=== PATIENT | male | born 1945 | race Caucasian/White ===

== ENCOUNTER 2017-08-23 02:18 | Inpatient (IN) | payer OTHER, MEDICARE ==
[~2017-08-23] VITALS: Ht 182.9 cm; Wt 85.7 kg
[~2017-08-23 02:18] MED LIST: AMLODIPINE BESY10 M1 PO; HYDROCHLOROTH12.5 M3 PO; KLOR-CON M2020 ME1 PO; LISINOPRIL40 M1 PO; MAG6464 MG PO
--- NOTE | 2017-08-23 16:09 | Operative Report ---
Operative/Inv Procedure Report Surgery Date: 08/23/17 Name of Procedure: cystoscopy: bilateral stent insertion Pre-Operative Diagnosis: colon cancer adhesion to dome of bladder. difficult dissection Post-Operative Diagnosis: same Estimated Blood Loss: scant Surgeon/Food And Beverage Checker: MD Hillman Arnold-urology Anesthesia: general endotracheal tube Drains: 16 fr cabrera.:bilteral stents (to be dc'd sequentially) Complications: none Operative Indication: intraoperative consultation for stents and evaluate adhesions to bladder. Operative/Procedure Note Note: already dictated: please look for second dictation. Findings: normal bladder: bilateral stents inserted Discharge Disposition: proceed with dr. huang. CC: Byron Hillman MD
--- NOTE | 2017-08-23 19:45 | Operative Report ---
Operative/Inv Procedure Report Surgery Date: 08/23/17 Name of Procedure: Laparoscopic converted to open low anterior resection of the rectum Pre-Operative Diagnosis: Colon cancer Post-Operative Diagnosis: Upper rectal cancer Estimated Blood Loss: 50ml to 100ml Surgeon/Law Enforcement Officer: Narayan HANSON,Yeison Roman/Jimenez Aiken MD/Fay WHETA Anesthesia: general endotracheal tube Specimens: Rectosigmoid Operative Indication: 72-year-old males status post colonic stenting for obstruction due to distal sigmoid colon cancer. Presents for resection Operative/Procedure Note Note: After consent is brought to the operative laid supine. He was then placed in lithotomy position. Gen. anesthesia was obtained and his abdomen was prepped and draped. We began laparoscopically. Vertical incision above the umbilicus was made sharply and dissected down the fascia bluntly. It was grasped Nakul's and a fasciotomy created sharply. Stay sutures were placed and a blunt Veloz port was placed. Pneumoperitoneum was achieved. A 5 mm port was placed in suprapubic region, a 5 mm port was placed in the right mid abdomen. A 12 mm port was placed in the right lower quadrant. We explored the abdomen. There is redundant sigmoid colon. The white line of Toldt was visualized and noted to be hyperemic. There was the stent in the pelvic inlet and the colon related to it was adherent to the anterior abdominal wall near the bladder. We began by taking down the white Toldt with cautery. This portion the operation was kind of more bloody than usual due to the resolving inflammation proximal me. It was presumed that the chronic colonic obstruction caused those changes. Otherwise the bowel looked to be normal and relatively supple. The colon was mobilized up to the left colon and then down to the upper rectum. This is where the difficulty began. The colon was fused to what appeared to be bladder. I took down some peritoneum around it. Dissection was more difficult due to the presence of the colonic stent. Teased through the fatty tissue/preperitoneal tissue. Eventually got down to the bladder wall. This is when I decided to call urology. Dr. Hillman came in to do cystoscopy which was unremarkable. He placed ureteral stents. The dissection was then carried forth further taking a small rim of muscle off the bladder. We did not enter the bladder. Inferiorly there was what looked to be possibly locally advanced cancer and at this point I decided to convert to an open operation for fear of violating oncologic principles. Incision made in the midline and subcutaneous tissues dissected with cautery. The fascia was incised with cautery. Bookwalter retraction system was placed. The rectosigmoid junction was dissected free from the peritoneum. It was unclear if there was a negative margin along the bladder so 2 more pieces were taken with cautery. These were sent off for permanent section. We then mobilized the rectum along bilateral perineal reflections. Again the dissections with much more difficult due to the presence of the stent which caused somewhat of an inflammatory reaction around it. We chose a proximal line of transection and took the mesentery down to the CHRISTOPHER. The CHRISTOPHER was then suture ligated with 0 Vicryl. We then got into the meso rectal plane posteriorly and care dissection down to the upper rectum. There is difficult to know how far we had to go due to the presence of the stent and the nonpalpable nature of the tumor with the stent in place. We had down to the operative mid rectal junction. And carried our dissection along the posterior mesentery up to the rectal wall. A TA stapler was then placed and the bowel divided distally. A LAVELL was used to perform proximal transection. Specimen was passed off the field. The stent was visible in the distal specimen with approximately 1 cm of margin distally. Therefore we took another rim of tissue along the rectal cuff. We mobilized it with cautery dissection and placed another TA stapler and took another cuff of tissue. The proximal bowel was an open with a purse tonio and sized to a 31 EEA. The intervals placed in the suture tied down. Fatty tissue was cleared off of it. Dr. Lizama then broke scrub and went below. He placed the EEA up the anus to the rectum. And an anastomosis was then created area 2 intact donuts were identified and a portion sent for further margin assessment. The anastomosis was then tested under water and there is no leaks. We then suction irrigated the peritoneal cavity normal saline. The fascia was enclosed with a running 0 Maxon suture. Skin closed with lawrence. Sterile dressings were applied. Sponge and counts are correct CC: Juancarlos HANSON,Derik Bella; Willy HANSON,Aurelia
--- NOTE | 2017-08-23 20:55 | Admission Core Measures ---
Acute Coronary Syndrome (CM) ACS Core Measures Acute Coronary Syndrome Diagnosis No Congestive Heart Failure (NEW) CHF Core Measures Congestive Heart Failure Diagnosis No Cerebrovascular Accident (NEW) CVA Core Measures CVA/TIA Diagnosis No Venous Thromboembolism VTE Core Nena (View Protocol) VTE Risk Factors Surgery No Mechanical VTE Prophylaxis d/t N/A MechProphylax Ordered No VTE Pharm Prophylaxis d/t NA PharmProphylax ordered Problem List As ranked by this Provider includes Assessment & Plan 1. Rectosigmoid cancer HOME MEDS Home Med List No Known Home Medications
[2017-08-23 21:50] VITALS: BP 130/72
--- NOTE | 2017-08-23 22:01 | PN- General Surgery ---
Subjective Subjective: POSTOP CHECK minimal pain, tired, no n/v/sob/cp, will sips clears, no oob, +uo via cabrera/stent , no bowel fxn Objective Vital Signs and I&Os SEE EMR Physical Exam: GEN- NAD CARD- s1s2 RRR PULM- CTAB ABD- incisions dressed- serosang drainage on midline dressing, quiet bs, softly dist, ttp EXT- calves soft nt, alps on - cabrera draining blood tinged urine, stent draining blood tinged urine Assessment/Plan Assessment/Plan A- POD0 sp lap-open LAR for rectsigmoid CA, with intraop cysto and ureteral stent placement, await return of bowel fxn, currently stable postop P- -abx x23hr postop -clr liquid diet -IVF -Per Dr. Hillman- cabrera to stay in place x5 days, remaining stent to be pulled POD1 morning (other stent dc'ed in pacu) -home meds -prn pain meds -hep sq, alps, oob, ambulate, ist -will dw attending Core Measures Venous Thromboembolism VTE Risk Factors Surgery No Mechanical VTE Prophylaxis d/t N/A MechProphylax Ordered No VTE Pharm Prophylaxis d/t NA PharmProphylax ordered
[2017-08-24 07:36] VITALS: BP 127/73
[2017-08-24 08:34] LABS: ABSOLUTE BASOPHIL COUNT 0 /CUMM (0.0-0.2); ABSOLUTE EOSINOPHIL COUNT 0 /CUMM (0.0-0.7); ABSOLUTE GRANULOCYTE CT 7.2 /CUMM (1.4-6.5); ABSOLUTE LYMPH COUNT 0.7 /CUMM (1.2-3.4); ABSOLUTE MONOCYTE COUNT 0.7 /CUMM (0.10-0.60); BASOPHIL % 0 % (0.0-2.0); EOSINOPHIL % 0 % (0-5); GRANULOCYTE % 83.4 % (42.2-75.2); MEAN CORPUSCULAR HGB 31.2 PG (27.0-31.0); MEAN CORPUSCULAR HGB CONC 33.4 G/DL (33.0-37.0); MEAN CORPUSCULAR VOLUME 93.4 FL (80.0-94.0); MEAN PLATELET VOLUME 9.2 FL (7.4-10.4); PLATELET COUNT 128 /CUMM (130-400); RBC DISTRIBUTION WIDTH 15.9 % (11.5-14.5); RED BLOOD CELL CT 3.22 /CUMM (4.70-6.10)
--- NOTE | 2017-08-24 08:55 | PN- General Surgery ---
See Addendum Subjective Subjective: Patient states he feels well. He is tolerating clears without any nausea or vomiting. Pain is well controlled. Denies ambulating yet, states he is planning to this afternoon. Reports passing flatus, denies having a BM. Objective Vital Signs and I&Os Vital Signs Date Time Temp Pulse Resp B/P B/P Pulse O2 O2 Flow FiO2 Mean Ox Delivery Rate 08/24 0736 98.1 79 18 127/73 98 Room Air 08/23 2150 98.0 81 18 130/72 95 Room Air Intake & Output 08/24 1600 08/24 0800 08/24 0000 08/23 1600 08/23 0800 08/23 0000 Intake Total Output Total Balance Patient 189 lb Weight Weight Reported by Patient Measurement Method Physical Exam: General: Resting comfortably in bed awake an alert in NAD Cardiac: S1S2 noted Lungs: Good inspiratory effort, CTAB Abd: Soft, mildly distened, midline dressing stained, other dressing d/c/i. Bowel sounds present, appropriately tender to palpation : Cabrera in place with concentrated urine and stent in place with sanguineous drainage Ext: Alps in place, no edema or calf tenderness B/L Current Medications: Current Medications Sig/Jodie Start time Last Medication Dose Route Stop Time Status Admin Acetaminophen 1,000 MG Q6P PRN 08/23 2145 AC N/A 1 UNIT IV 08/24 214 Acetaminophen 1,000 MG .STK-MED ONE 08/230 DC IV 08/23 1211 Amlodipine Besylate 10 MG DAILY 08/24 1000 CAN PO Bicalutamide 50 MG DAILY 08/24 1000 CAN PO Cefazolin Sodium 2 GM IQ8 08/24 0000 DC 08/24 N/A 1 UNIT IV 08/24 0829 0814 Cefazolin Sodium 2,000 MG ONCE 08/23 0000 DC IV 08/23 2359 Dextrose/Sodium 1,000 ML .[id number] 08/23 2145 AC 08/24 Chloride IV 0536 Fentanyl Citrate 250 MCG .STK-MED ONE 08/23 1210 DC IM 08/23 1211 Heparin Sodium 5,000 UNIT Q8 08/23 2200 AC 08/24 (Porcine) SC 0536 Hydrochlorothiazide 12.5 MG DAILY 08/24 1000 CAN PO Hydromorphone HCl 2 MG Q3P PRN 12/18 2145 AC PO Hydromorphone HCl 4 MG Q3P PRN 08/23 2145 AC PO Hydromorphone HCl 2 MG .STK-MED ONE 08/23 2021 DC IM 08/23 2022 Hydromorphone HCl 2 MG .STK-MED ONE 08/23 1958 DC IM 08/23 1959 Hydromorphone HCl 2 MG .STK-MED ONE 08/23 1210 DC IM 08/23 1211 Lisinopril 40 MG DAILY 08/24 1000 CAN PO Meperidine HCl 50 MG .STK-MED ONE 08/23 2006 DC IM 08/23 2007 Metronidazole 500 MG IQ8 08/24 0000 AC 08/24 N/A 1 UNIT IV 08/24 0859 0814 Metronidazole 500 MG ONCE 08/23 0000 DC Sodium Chloride 100 ML IV 08/23 2359 Midazolam HCl 2 MG .STK-MED ONE 08/23 1210 DC IM 08/23 1211 Morphine Sulfate 2 MG Q2P PRN 08/23 2145 AC IV Ondansetron HCl 4 MG Q8P PRN 08/23 2145 AC IV Ondansetron HCl 4 MG .STK-MED ONE 08/23 1210 DC IM 08/23 1211 Results Last 48 Hours of Labs: Laboratory Tests 08/24 0713 Chemistry Sodium Pending Potassium Pending Chloride Pending Carbon Dioxide Pending Anion Gap Pending BUN Pending Creatinine Pending BUN/Creatinine Ratio Pending Hematology CBC w Diff Pending WBC Pending RBC Pending Hgb Pending Hct Pending MCV Pending MCH Pending RDW Pending Plt Count Pending MPV Pending PUBS MCHC Pending Assessment/Plan Assessment/Plan 72 M POD 1 s/p lap-open LAR for rectosigmoid CA with intraop cysto and ureteral stent placement with return of bowel function Advace to full liquids D/c IVF when adequate oral intake Per Dr. Sammy cabrera to stay in place x5 days Stent d/c at bedside Cont pain regimen Cont DVT ppx - hsq, alps, oob, ambulate Encourage IS D/w Dr. Busch Core Measures Venous Thromboembolism VTE Risk Factors Surgery No Mechanical VTE Prophylaxis d/t N/A MechProphylax Ordered No VTE Pharm Prophylaxis d/t NA PharmProphylax ordered
[2017-08-24 09:02] LABS: HEMATOCRIT 30.1 % (42-52); WHITE BLOOD CELL COUNT 8.6 /CUMM (4.8-10.8)
[2017-08-24 15:12] VITALS: BP 110/63
[2017-08-24 22:30] VITALS: BP 110/64
[2017-08-25 07:13] VITALS: BP 110/60
--- NOTE | 2017-08-25 07:21 | PN- General Surgery ---
See Addendum Subjective Subjective: No events overnight. Patient admits to mild incisional abdominal pain this am (), relieved with PO Dilaudid. Tolerating his full liquid diet without nausea or emesis. Denies any fevers, chills, chest pain, or SOB. Cabrera in place with adequate UOP. Passing large amounts of flatus, no bowel movement. Objective Vital Signs and I&Os Vital Signs Date Time Temp Pulse Resp B/P B/P Pulse O2 O2 Flow FiO2 Mean Ox Delivery Rate 08/25 0713 98.2 86 20 110/60 92 Room Air 08/24 2230 99.9 90 18 110/64 93 08/24 1512 98.6 84 20 110/63 97 Room Air 08/24 0736 98.1 79 18 127/73 98 Room Air Intake & Output 08/25 0800 08/25 0000 08/24 1600 08/24 0800 08/24 0000 08/23 1600 Intake Total 345 1150 Output Total 1025 550 575 Balance -1025 345 -550 575 Intake, IV 225 1150 Intake, Oral 120 Output, Other 350 Output, Urine 1025 550 225 Patient 189 lb Weight Weight Reported by Patient Measurement Method Physical Exam: Tmax 99.9, VSS, on RA. General: Lying in bed in NAD Cardiac: RRR, no murmurs Pulmonary: CTAB, good inspiratory effort Abdominal: Midline dressing with old drainage. Dressing taken down, no active drainage noted. Thuy intact. No evidence of erythema. New dressing applied. Two laparoscopic port sites intact. Upper port site band aid taken off and noted to have blistering on the skin on either side that did open, clear drainage, non tender to palpation. Incision site is intact without drainage. + BS, soft, mildly distended, mild incisional tenderness to palpation. No rebound or guarding. No LE edema. Cabrera in place with sediment, mostly sanguinous drainage in gravity bag, light pink in tubing. Assessment/Plan Assessment/Plan 72 y/o male POD #2 s/p lap-open LAR for rectosigmoid CA with intraop cysto and ureteral stent placement, doing well post operatively. Tolerating full liquids, passing flatus. Awaiting bowel movement. Both stents have been removed. - Advance to low residue diet - d/c IVF - Per Dr. Hillman- cabrera to stay in place x 5 days - PO pain control - Antiemetics prn - Encourage OOB/IS/ambulation - DVT ppx - hsq, alps, oob, ambulate - will d/w Dr. Busch Core Measures Venous Thromboembolism VTE Risk Factors Surgery No Mechanical VTE Prophylaxis d/t N/A MechProphylax Ordered No VTE Pharm Prophylaxis d/t NA PharmProphylax ordered
[2017-08-25 14:39] VITALS: BP 126/72
[2017-08-25 22:25] VITALS: BP 152/76
[2017-08-26 07:34] VITALS: BP 140/70
--- NOTE | 2017-08-26 08:32 | PN- General Surgery ---
See Addendum Subjective Subjective: Awake, alert No complaints overnight - "had a great night" Pain is well controlled with oral meds Tolearated a LRD for diinner and breakfast, denies nausea Passing "lots" of gas, no bm but he senses one is coming soon Objective Vital Signs and I&Os Vital Signs Date Time Temp Pulse Resp B/P B/P Pulse O2 O2 Flow FiO2 Mean Ox Delivery Rate 08/26 0734 99.1 84 18 140/70 92 08/25 2225 99.6 89 18 152/76 95 Room Air 08/25 1439 99.8 67 18 126/72 94 Room Air Intake & Output 08/26 1600 08/26 0800 08/26 0000 08/25 1600 08/25 0800 08/25 0000 Intake Total 379 765 0713 720 345 Output Total 450 058 894 3457 Balance 30 -20 1365 -305 345 Intake, IV 0 600 225 Intake, Oral 649 680 9504 120 120 Output, Urine 450 614 538 6806 Physical Exam: Tmax 99.1, all other vss General: alert and oriented times three Chest: clear anterioly bilaterally, RRR Abd: soft, casey-incisional tenderness - appropriate for post op, nondistended, good bs Ext:warm, no edema, no calf tenderness Wound: dressed, dry, no surrounding erythema or hematoma Current Medications: Current Medications Sig/Jodie Start time Last Medication Dose Route Stop Time Status Admin Heparin Sodium 5,000 UNIT Q8 08/230 AC 08/26 (Porcine) SC 0540 Hydromorphone HCl 2 MG Q3P PRN 08/23 2145 AC 08/24 PO 1115 Hydromorphone HCl 4 MG Q3P PRN 08/23 2145 AC 08/26 PO 0540 Morphine Sulfate 2 MG Q2P PRN 08/23 2145 AC IV Ondansetron HCl 4 MG Q8P PRN 08/23 2145 AC IV Assessment/Plan Assessment/Plan 72yo male s/p lap-open LAR pod 3 tolerating LRD Pain is well controlled await BM dc planning hep sc for dvt ppx Core Measures Venous Thromboembolism VTE Risk Factors Surgery No Mechanical VTE Prophylaxis d/t N/A MechProphylax Ordered No VTE Pharm Prophylaxis d/t NA PharmProphylax ordered
--- NOTE | 2017-08-26 08:41 | Patient Discharge Instructions ---
Discharge Instructions General Discharge Information You were seen/treated for: Colon cancer with extensive adherence to the bladder. You had these procedures: Colon resection and ureteral stent placement, cabrera replacement Watch for these problems: temp>101, increased redness or drainage of wounds, increased nausea or abdominal pain, inability to void after cabrera removal Call Surgeon to remove: remove cabrera for a void trial - Dr Hillman Other wound care: Keep incision clean and dry - may shower, no bathing or soaking No heavy lifting or twisting, bending, pulling or putting any strain on abdominal muscles. Special Instructions: Take dilaudid as needed for pain control Take colace to prevent constipation while taking dilaudid. Contact Dr. Hillman's office for a void trial. Diet Recommended Diet: Low Residue Activity Activity Self Limited: Yes Pounds, do NOT lift more than: 10 Acute Coronary Syndrome Inclusion Criteria At DC or during hospital stay patient has or had the following: ACS DIAGNOSIS No Discharge Core Measures Meds if any: Prescribed or Continued at Discharge Meds if any: NOT Prescribed or Continued at Discharge Congestive Heart Failure Inclusion Criteria At DC or during hospital stay patient has or had the following: CHF DIAGNOSIS No Discharge Core Measures Meds if any: Prescribed or Continued at Discharge Meds if any: NOT Prescribed or Continued at Discharge Cerebrovascular accident Inclusion Criteria At DC or during hospital stay patient has or had the following: CVA/TIA Diagnosis No Discharge Core Measures Meds if any: Prescribed or Continued at Discharge Meds if any: NOT Prescribed or Continued at Discharge Venous thromboembolism Inclusion Criteria VTE Diagnosis No VTE Type NONE VTE Confirmed by (Test) NONE Discharge Core Measures - Per Current guidelines, there needs to be overlap - treatment for the first 5 days of Warfarin therapy. - If discharged on Warfarin prior to 5 days of - overlap therapy, the patient will need to be - assessed for post discharge needs including - *Post discharge parental anticoagulation - *Warfarin and/or parental anticoagulation education - *Follow up date to check INR post discharge At least 5 days overlap therapy as Inpatient No Meds if any: Prescribed or Continued at Discharge Note: Overlap Therapy is Warfarin and Anticoagulant Meds if any: NOT Prescribed or Continued at Discharge
[2017-08-26] MEDS ORDERED: FLOMAX0.4 M1 PO (12:19)
[2017-08-26] MEDS ORDERED: DILAUDID2 M1 PO (12:21)
[2017-08-26 14:25] VITALS: BP 124/70
[2017-08-26 22:37] VITALS: BP 115/56
[2017-08-27 06:51] VITALS: BP 118/66
--- NOTE | 2017-08-27 07:23 | PN- General Surgery ---
See Addendum Subjective Subjective: Awake, alert Ambulating in room without difficulty Has just had another BM - loose Tolerating LRD without any pain or nausea Pain is well controlled No complaints Failed void trial yesterday and cabrera replaced He is comfortable going home with a cabrera Objective Vital Signs and I&Os Vital Signs Date Time Temp Pulse Resp B/P B/P Pulse O2 O2 Flow FiO2 Mean Ox Delivery Rate 08/27 0651 97.7 86 20 118/66 97 Room Air 08/26 2237 99.8 101 20 115/56 95 Room Air 08/26 1458 108 124/70 08/26 1425 98.8 108 20 124/70 93 Room Air 08/26 0734 99.1 84 18 140/70 92 Intake & Output 08/27 0800 08/27 0000 08/26 1600 08/26 0800 08/26 0000 08/25 1600 Intake Total 600 1000 800 646 788 9743 Output Total 550 800 350 450 500 675 Balance 50 200 450 30 -20 1365 Intake, IV 0 0 Intake, Oral 600 1000 800 150 324 1593 Number 1 Bowel Movements Output, Urine 550 800 350 450 500 675 Physical Exam: VSS, afebrile General: alert and oriented times three Chest: clear anteriorly bilaterally, RRR Abd: soft, good bs Ext: warm no edema Wd: dressing changed, clean and dry, lawrence intact Assessment/Plan Assessment/Plan 72yo male s/p LAR with cancer adhered to bladder - difficult dissection and ureteral stent placement intra-op, pod 4 with urinary retention post op requiring cabrera replacement Plan to dc home with cabrera - follow up with Dr Rafy shook hep sc for dvt ppx until discharge LRD Core Measures Venous Thromboembolism VTE Risk Factors Surgery No Mechanical VTE Prophylaxis d/t N/A MechProphylax Ordered No VTE Pharm Prophylaxis d/t NA PharmProphylax ordered
[2017-08-27 08:38] VITALS: BP 118/66
--- NOTE | 2017-08-27 11:22 | Surgical Discharge Summary ---
Visit Information Visit Dates Admission Date: 08/23/17 Discharge Date: 08/27/17 History of Present Illness Chief Complaint: colorectal cancer Medical History Blood Transfusion Hx: No Neurological: NONE EENT: NONE Cardiovascular: hypertension Respiratory: NONE Gastrointestinal: NONE Hepatic: NONE Renal: NONE Musculoskeletal: NONE Psychiatric: NONE Endocrine: NONE Blood Disorders: NONE Cancer(s): prostate cancer CONFERENCE MANAGER/Reproductive: NONE History of MRSA: No History of VRE: No History of CDIFF: No Isolation History: Standard Influenza Vaccine: 07/18/17 Surgical History Pertinent Surgical History: arthroscopy (shoulder pinning), colon resection Family History Relations & Conditions If Any: FATHER, , Age 67; Cause: Lung cancer. MOTHER, , Age 92; Cause: Old age. BROTHER, , Age 67; Cause: Renal cell cancer. Relation not specified for: Kidney cancer Lung cancer Psychosocial History Where Do You Live? Home Who Do You Live With? Spouse Services at Home: None What is Your Primary Language? Japanese Review of Systems: see preop Hospital Course Course Attending Physician: Yeison Busch MD Primary Care Physician: Willy HANSON,[facility] Course: Patient was admitted to the surgical service after undergoing elective low anterior resection of the rectosigmoid junction. His postoperative course was marked by urinary retention requiring repeat catheterization. His bowel function returned quickly and he was started on a diet. He'll be discharged home with Garcia catheter in place for outpatient follow-up with urology. Allergies: Coded Allergies: No Known Allergies (07/15/17) Significant Procedures: Laparoscopic converted to open low anterior resection of the rectum Disposition Summary Disposition Principal Diagnosis: Obstructing rectosigmoid cancer Additional Diagnosis: Prostate cancer with urinary retention Discharge Disposition: home or self care Discharge Instructions General Discharge Information Code Status: Full Code Patient's Diet: Regular low residual Patient's Activity: No lifting 20 pounds Follow-Up Instructions/Appts: 2 weeks for staple removal Medications at Discharge Discharge Medications: Start taking the following new medications: Tamsulosin HCl (Flomax) 0.4 MG CAP.ER.24H 1 Capsule ORAL DAILY Qty = 7 No Refills Comments: Last Taken: 08/27/17 Time: 8:30 AM Hydromorphone HCl (Dilaudid) 2 MG TABLET 1-2 Tablet ORAL EVERY 4-6 HOURS as needed for PAIN Qty = 30 No Refills Comments: Last Taken: 12/22/17 Time: 6:30 AM Copies To: Helen HANSON,Edd Norris; Willy HANSON,Aurelia; Adeola HANSON,Bill; Salomon HANSON,Derik Baumann; Byron Hillman MD
--- NOTE | 2017-09-03 10:36 | Operative Report ---
Operative/Inv Procedure Report Surgery Date: 08/23/17 Name of Procedure: Cystoscopy. Bilateral stent insertion. Intraoperative consult. 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 Post-Operative Diagnosis: Same Estimated Blood Loss: scant Surgeon/Greaser Operator: MD Rafy, Byron-urology Anesthesia: general endotracheal tube Drains: 18 Colombian Garcia catheter. Bilateral ureteral stents, right stent to be removed postoperatively, and the left stent to be removed postop day 1. Patient to void trial prior to DC home. Complications: None Operative/Procedure Note Note: The patient was taken to the operating room for colon cancer resection, and I was called for consultation. With laparoscopic visualization, the colon cancer adherent to the dome of the bladder, was resected by Dr. Busch with observation. The Patient was already placed in lithotomy Yellow-fin stirrups. He was then draped and prepped in the usual surgical fashion, after removing the Garcia catheter. A 22 Colombian cystoscope sheath with a 30 angle lens was inserted into the bladder without significant difficulty. The bladder was thoroughly and systematically examined, and was noted to be free of tumor, free of stone, free of perforation. Both ureteral orifices were in their orthotopic positions with clear reflux bilaterally. Under direct visualization the left orifice was intubated with a 5 Colombian whistle-tip catheter, which was advanced easily into the left kidney pelvis. The right ureteral orifice was intubated with a second 5 Colombian ureteral whistle tip catheter, and advanced into the right renal pelvis without difficulty. For identification purposes the blue marked stent went into the left kidney, and the right ureteral stent was marked red. Urine culture was obtained and sent to pathology. The cystoscope was then removed leaving both stents in proper place. An 18 Colombian Garcia catheter was inserted draining clear fluid and 10 mL of sterile water was then placed in the balloon. The ends of the ureteral stents, which protruded externally, were taped to the Garcia catheter in order to secure their position. The individual ureteral stents were then connected to their individual drainage devices. The patient tolerated this procedure well, and Dr. Busch proceed with the rest of the surgery. Discharge Disposition: Proceed with Dr. Busch CC: Byron Hillman MD
== END 2017-08-27 11:50 | DRG 330 ==
LOC: SDA 02:18 → 2NB 02:18 → ENRESERV 20:06 → 2NB 21:17 → ENPENDDIS 08-26 12:36 → ENTRNSPT 08-27 11:42 → EDTRNSPTSTS 08-27 11:43 → EDTRNSPT 08-27 11:45 → 2NB 08-27 11:50 → CMPTRNSPT 08-27 12:04
PROVIDERS: Physician Assistant Surgical
PROC: 0DBN0ZZ Excision of Sigmoid Colon, Open Approach (ICD-10-PCS; principal; 2017-08-23)
PROC: 0TBB0ZZ Excision of Bladder, Open Approach (ICD-10-PCS; principal; 2017-08-23)
PROC: 0DBP0ZZ Excision of Rectum, Open Approach (ICD-10-PCS; principal; 2017-08-23)
PROC: 0DJD4ZZ Inspection of Lower Intestinal Tract, Percutaneous Endoscopic Approach (ICD-10-PCS; principal; 2017-08-23)
PROC: 0T788DZ Dilation of Bilateral Ureters with Intraluminal Device, Via Natural or Artificial Opening Endoscopic (ICD-10-PCS; 2017-08-23)
DX: C19 Malignant neoplasm of rectosigmoid junction (principal); C79.11 Secondary malignant neoplasm of bladder; C77.2 Secondary and unspecified malignant neoplasm of intra-abdominal lymph nodes; C61 Malignant neoplasm of prostate; R33.9 Retention of urine, unspecified; I10 Essential (primary) hypertension
CPT/HCPCS: 2NBP; 36415; 82436; 87086; C9399; J0131; J0690; J1644; J2405; J7042; J9202; Q9968

== ENCOUNTER → 2017-09-22 | Day surgery (SDC) | payer OTHER, MEDICARE ==
[~2017-09-22] VITALS: Ht 182.9 cm; Wt 88.5 kg
[~2017-09-22] MED LIST changes: +BICALUTAMIDE50 M1 PO; +DILAUDID2 M1 PO; +FLOMAX0.4 M1 PO
--- NOTE | 2017-09-22 13:56 | Operative Report ---
Operative/Inv Procedure Report Surgery Date: 09/22/17 Name of Procedure: Left axillary vein Port-A-Cath placement with ultrasound and fluoroscopic guidance Pre-Operative Diagnosis: Colon cancer Post-Operative Diagnosis: Same Estimated Blood Loss: scant Surgeon/Credit Card Analyst: Narayan HANSON,Yeison Roman Anesthesia: local monitored anesthesi Implants: [employer] Operative/Procedure Note Note: Patient brought to the operating room and laid supine. His arm tucked and a roll placed behind the shoulder. His left chest and neck were then prepped and draped. He was sedated. Using ultrasound imaging the left axillary vein was visualized and percutaneously accessed after local anesthesia placed. A wire was placed on the right atrium. Confirmation with fluoroscopic imaging was performed. The left chest was then infiltrated further with local anesthesia an incision made over the wire. An inferiorly based pocket was created with blunt and cautery dissection. The port was placed into the pocket and the catheter measured under fluoroscopic imaging. It was trimmed to 28 cm. Using fluoroscopy the dilator was placed down into the SVC. The wire was removed and passed off the field. The catheter was placed through the peel-away sheath. Sheath was then removed. Final fluoroscopic images show the catheter in the atrial SVC junction. The catheter was aspirated and flushed with concentrated heparin. The port was anchored to the deep subcutaneous tissues tissues with 0 Vicryl suture. The skin was closed with 3-0 and 4-0 Vicryl. Steri-Strips and sterile dressing applied. Sponge and needle counts are correct. CC: Helen HANSON,Edd Norris; Willy HANSON,Aurelia; Adeola HANSON,[facility]
--- NOTE | 2017-09-22 14:22 | RADIOLOGY REPORT ---
EXAMINATION: XR PORTABLE CHEST CLINICAL INFORMATION: Colon cancer. Postop surgery. COMPARISON: Chest x-ray on 07/15/2017. CT the chest done 08/05/2017. TECHNIQUE: Portable AP semierect view of the chest was obtained. FINDINGS: Lungs remain clear. Again there is mild elevation of the left hemidiaphragm and now a linear area of platelike atelectasis in the lower left hemithorax. The remainder lung hernandez is clear. A central venous port catheter has been placed in the left subclavian vein, the tip of which is located in the distal SVC. No pneumothorax. IMPRESSION: 1. Left subclavian central venous catheter in distal SVC. 2. Linear platelike atelectasis left lung.
--- NOTE | 2017-09-23 15:42 | RADIOLOGY REPORT ---
EXAMINATION:\H\ \N\XR CHEST CLINICAL INFORMATION: Port-A-Cath insertion in OR. Left-sided access. COMPARISON: X-ray chest 09/22/2017, 07/15/2017. CT chest 08/05/2017. TECHNIQUE: Single C-arm view of the chest was obtained. FINDINGS: There appear to be lap pads and patellar instruments overlying the chest. A left-sided catheter seen with its tip terminating in the mid right atrium. IMPRESSION: Single C-arm film of the chest as described. 0.4 minutes fluoroscopy. 7.17 mGy.
== END ==
LOC: STS 02:23
DX: C18.9 Malignant neoplasm of colon, unspecified (principal); Z87.891 Personal history of nicotine dependence
CPT/HCPCS: 71045; C1788; J0690; J1644; J2250